=== PATIENT | female | born 1970 | race Caucasian/White ===

== ENCOUNTER 2025-04-11 12:30 | Emergency (ER) | payer OTHER ==
[~2025-04-11] VITALS: Ht 172.7 cm; Wt 73.3 kg
[2025-04-11] MEDS ORDERED: PERC5TAB12 PO (14:03)
[2025-04-11 14:47] VITALS: BP 125/68; TEMP 98; O2SAT 94
[2025-04-15] MEDS ORDERED: [UNRECOGNIZED DRUG - OTHER] SC (14:18)
[2025-04-15] MEDS ORDERED: TIRZEPATIDE SC (14:18)
== END 2025-04-11 14:49 | disposition other institution (70) ==
LOC: M ED 12:30 → EDBD 12:30 → M ED 14:49
DX: S42.032A Displaced fracture of lateral end of left clavicle, initial encounter for closed fracture (principal); V43.62XA Car passenger injured in collision with other type car in traffic accident, initial encounter; Y92.9 Unspecified place or not applicable; Y93.9 Activity, unspecified; Y99.9 Unspecified external cause status

== ENCOUNTER 2025-04-20 09:55 | Day surgery (SDC) | payer OTHER ==
[~2025-04-20] VITALS: Ht 172.7 cm; Wt 71.2 kg
[~2025-04-20 09:55] MED LIST: PERC5TAB12 PO; TIRZEPATIDE SC; [UNRECOGNIZED DRUG - OTHER] SC
[2025-04-20] MEDS ORDERED: LR 1,000 ML IV SCH (10:30)
[2025-04-20] MEDS: MIDAZOLAM INJ 2 MG/2 ML VIAL IV PRN (12:18)
[2025-04-20] MEDS ORDERED: ACETAMINOPHEN 1000MG/100ML IV BAG As Ordered ONE (12:29)
[2025-04-20] MEDS ORDERED: KETOROLAC 30 MG/ML 1 ML VIAL As Ordered ONE (12:29)
[2025-04-20] MEDS ORDERED: ONDANSETRON 4MG 2ML VIAL As Ordered ONE (12:29)
[2025-04-20] MEDS ORDERED: SUGAMMADEX SODIUM 500 MG/5 ML VIAL As Ordered ONE (12:29)
[2025-04-20] MEDS ORDERED: dexAMETHasone 4 MG/ML 1 ML VIAL As Ordered ONE (12:29)
[2025-04-20] MEDS ORDERED: ROCURONIUM BROMIDE 50MG/5ML VIAL As Ordered ONE (12:30)
[2025-04-20] MEDS ORDERED: LIDOCAINE 2% 100 MG/5 ML SDV (FOR ANES.) As Ordered ONE (12:30)
[2025-04-20] MEDS: ROPIvacaine 0.5% 30ML VIAL PN ONE (12:49)
[2025-04-20] MEDS: ceFAZolin SOD 2 GM IV ONCE IV ONE (12:54)
[2025-04-20] MEDS ORDERED: GLYCOPYRROLATE INJ 0.2 MG/ML 2 ML VIAL As Ordered ONE (12:59)
[2025-04-20] MEDS ORDERED: HYDROmorphone HCL 2 MG/ML 1 ML VIAL As Ordered ONE (13:34)
[2025-04-20] MEDS ORDERED: PHENYLephrine 500MCG 5ML (100MCG/ML) SYRINGE As Ordered ONE (13:41)
[2025-04-20] MEDS ORDERED: HYDROMORPHONE HCL 0.5 MG/0.5 ML SYRINGE IV PRN (14:35)
[2025-04-20] MEDS ORDERED: PERC5TAB12 PO ×2 (15:18→15:40)
[2025-04-20 15:53] VITALS: BP 150/84; TEMP 97.4; O2SAT 99
== END 2025-04-20 16:01 | disposition home or self-care (01) ==
LOC: M SDC 09:55
PROVIDERS: ATTEND Orthopaedic Surgery
DX: S42.032A Displaced fracture of lateral end of left clavicle, initial encounter for closed fracture (principal); X58.XXXA Exposure to other specified factors, initial encounter; Y93.9 Activity, unspecified; Y92.9 Unspecified place or not applicable; Z87.891 Personal history of nicotine dependence
CPT/HCPCS: 23515; 76000; C1713; J0131; J0665; J0690; J1100; J1171; J1596; J1885; J2250; J2371; J2405; J2795; J3010

== ENCOUNTER → 2025-05-03 | Outpatient (CLI) | payer OTHER | LOC: M SOG 07:53 | PROVIDERS: ATTEND Physician Assistant | DX: Z53.9 Procedure and treatment not carried out, unspecified reason (principal) ==

== ENCOUNTER → 2025-05-06 | Outpatient (CLI) | payer OTHER | LOC: M SOG 15:29 | PROVIDERS: ATTEND Physician Assistant | DX: S42.022A Displaced fracture of shaft of left clavicle, initial encounter for closed fracture (principal); Y93.9 Activity, unspecified; Y92.9 Unspecified place or not applicable ==